=== PATIENT | female | born 1980 | race Caucasian/White ===

== ENCOUNTER → 2024-07-27 14:13 | Outpatient (REF) | payer BC, SELFPAY | LOC: RCS 14:13 | PROVIDERS: ATTENDING PHYSICIAN Internal Medicine; FAMILY PHYSICIAN Family Medicine | DX: R42 Dizziness and giddiness (principal); I45.10 Unspecified right bundle-branch block; R00.2 Palpitations; R60.0 Localized edema | CPT/HCPCS: 93017 ==

== ENCOUNTER → 2024-08-03 12:42 | Outpatient (REF) | payer BC, SELFPAY | LOC: HWRCS 12:42 | PROVIDERS: ATTENDING PHYSICIAN Internal Medicine; FAMILY PHYSICIAN Family Medicine | DX: R42 Dizziness and giddiness (principal); I45.10 Unspecified right bundle-branch block; R00.2 Palpitations; R60.0 Localized edema | CPT/HCPCS: 93306 ==